=== PATIENT | male | born 1970 | race Caucasian/White ===

== ENCOUNTER 2019-02-11 14:23 | Emergency (ER) | payer MEDICAID, OTHER ==
[2019-02-11] MEDS: ONDANSETRON (ODT) 4 MG TAB ODT (15:50)
[2019-02-11] MEDS: HYDROCODONE/APAP (5/325) TAB PO (15:50)
== END 2019-02-11 16:54 | disposition home or self-care (01) ==
LOC: FTE 14:23
DX: S89.92XA Unspecified injury of left lower leg, initial encounter (principal); X58.XXXA Exposure to other specified factors, initial encounter; Y92.9 Unspecified place or not applicable
CPT/HCPCS: 29505; 73562; 99283-25

== ENCOUNTER 2019-04-29 09:56 | Emergency (ER) | payer SELFPAY, MEDICAID ==
[2019-04-29] MEDS: DEXAMETHASONE 10 MG/ML 1 ML INJ IM (10:46)
[2019-04-29] MEDS: NAPROXEN 500 MG TAB PO (11:03)
== END 2019-04-29 11:50 | disposition home or self-care (01) ==
LOC: FTE 11:50
DX: M10.9 Gout, unspecified (principal)
CPT/HCPCS: 99283